=== PATIENT | male | born 1985 | race Caucasian/White ===

== ENCOUNTER 2021-05-06 13:42 | Outpatient (REF) | payer BC, SELFPAY ==
[2021-05-06 13:56] LABS: MANUAL DIFF FLAG NO
[2021-05-06 14:06] LABS: Basophils Absolute Auto 0.1 X10*3/uL (0.0-0.2); Basophils Percent Auto 0.5 % (0-2); Eosinophils Absolute Auto 0.3 X10*3/uL (0.0-0.4); Eosinophils Percent Auto 2.6 % (0-4); Hematocrit 42.5 % (42.0-52.0); Hemoglobin 13.8 g/dl (14.0-18.0); Imm Gran Abs Auto 0.17 X10*3/uL (0.00-0.03); Imm Gran Pct Auto 1.5 % (0.0-0.4); Lymphocytes Absolute Auto 1.3 X10*3/uL (1.2-4.9); Lymphocytes Percent Auto 11.4 % (20-40); Mean Corpuscular HGB Conc 32.5 g/dl (31.0-36.0); Mean Corpuscular Hemoglobin 29.4 pg (27.0-33.0); Mean Corpuscular Volume 90.4 fL (80.0-98.0); Mean Platelet Volume 9.3 fL (9.4-12.4); Monocytes Absolute Auto 0.9 X10*3/uL (0.1-1.2); Monocytes Percent Auto 8.2 % (2-11); Neutrophils Absolute Auto 8.7 x10*3/uL (2.0-8.3); Neutrophils Percent Auto 75.8 % (45-73); Platelet Count 235 X10*3/uL (160-400); Red Cell Distribution Width 14.6 % (11.0-16.0); White Blood Count 11.5 X10*3/uL (4.8-10.8)
[2021-05-06 14:28] LABS: Alanine Aminotransferase 21 U/L (0-40); Albumin Level 4.4 g/dL (3.5-5.0); Alkaline Phosphatase 49 U/L (39-117); Aspartate Amino Transferase 14 U/L (5-37); Bilirubin Direct 0.2 mg/dL (0.0-0.5); Bilirubin Total 0.4 mg/dL (0.0-1.0); C Reactive Protein 0.33 mg/dL (< or = 0.50); Iron 54 mcg/dL (45-160); Percent Iron Saturation 14 % (15-50); Total Iron Binding Capacity 394 mcg/dL (228-428); Total Protein 7.1 g/dL (6.5-8.0); Unsaturated Iron Binding 340 ug/dL
[2021-05-06 14:48] LABS: Ferritin 35 ng/mL (20-250)
[2021-05-06 14:49] LABS: Erythrocyte Sedimentation Rate 2 MM/HR (0-15)
[2021-05-06 15:10] LABS: Folate > 20.0 ng/mL (> or = 4.0); Vitamin B12 429 pg/mL (200-900)
== END 2021-05-06 13:43 | disposition home or self-care (01) ==
LOC: HO.LAB 13:42
PROVIDERS: PCP Physician Assistant Medical; Visit Provider Internal Medicine
DX: K51.30 Ulcerative (chronic) rectosigmoiditis without complications (principal)
CPT/HCPCS: 36415; 80076; 82607; 82728; 82746; 83540; 84443; 85025; 85652; 86140

== ENCOUNTER 2022-08-11 06:34 | Day surgery (SDC) | payer BC, SELFPAY ==
--- NOTE | 2022-08-10 09:16 | HO.ANESPROP2 ---
Documented by User: Yanci Niño NP 08/10/22 09:17 HPI - Anesthesia Eval Consult details Narrative: 37yo M for Colonoscopy [facility] Past Medical History Medical History (Updated 08/10/22 @ 06:56 by Neha Cantu) ADHD Anxiety Iron deficiency anemia Skin rash Ulcerative colitis Ulcerative proctitis Surgical History Surgical History (Updated 08/10/22 @ 06:56 by Neha Cantu) History of colonoscopy No pertinent past surgical history Social History Social History Patient Tobacco Use Status: Never used Tobacco Are you DNR?: No Advance Directives: No Advance Directives Information Provided: Yes Meds Allergies Allergy/AdvReac Type Severity Reaction Status Date / Time No Known Allergies Allergy Verified 08/10/22 06:57 Home Medications Medication Instructions Recorded Confirmed Last Taken Type dexamethasone 10 ml PO Q8H as directed 08/10/22 08/10/22 Unknown History dextroamphetamine-amphetamine ER 1 cap PO DAILY 08/10/22 08/10/22 Unknown History 10 mg 24hr capsule,extend release (Adderall XR) ferrous sulfate PO BID 08/10/22 Unknown History mesalamine 1.2 gram tablet,delayed 4.8 g PO DAILY 08/10/22 08/10/22 Unknown History release mesalamine 4 gram/60 mL enema 1 [facility] BEDTIME 08/10/22 Unknown History multivitamin 1 tab PO DAILY 08/10/22 08/10/22 Unknown History Exam Exam Date and Time: August 10, 2022 0916 Assessment and Plan Assessment Anesthesia Assessment: Chart Reviewed Documented by User: Usama Rodriguez MD 08/11/22 07:47 [facility] Past Medical History Medical History (Updated 08/10/22 @ 06:56 by Neha Cantu) ADHD Anxiety Iron deficiency anemia Skin rash Ulcerative colitis Ulcerative proctitis Family History Family history of problems with anesthesia: No Surgical History Surgical History (Updated 08/10/22 @ 06:56 by Neha Cantu) History of colonoscopy No pertinent past surgical history History of Problems with Anesthesia: No Social History Social History Patient Tobacco Use Status: Never used Tobacco Are you DNR?: No Advance Directives: No Advance Directives Information Provided: Yes Meds Allergies Allergy/AdvReac Type Severity Reaction Status Date / Time No Known Allergies Allergy Verified 08/10/22 06:57 Home Medications Medication Instructions Recorded Confirmed Last Taken Type dexamethasone 10 ml PO Q8H as directed 08/10/22 08/10/22 Unknown History dextroamphetamine-amphetamine ER 1 cap PO DAILY 08/10/22 08/10/22 Unknown History 10 mg 24hr capsule,extend release (Adderall XR) ferrous sulfate PO BID 08/10/22 Unknown History mesalamine 1.2 gram tablet,delayed 4.8 g PO DAILY 08/10/22 08/10/22 Unknown History release mesalamine 4 gram/60 mL enema 1 NH BEDTIME 08/10/22 Unknown History multivitamin 1 tab PO DAILY 08/10/22 08/10/22 Unknown History Exam Airway Mallampati Class: I TM Dist: >3cm Neck ROM: Full Loose/Missing/Broken Teeth: No Heart: ok Lungs: ok Assessment and Plan Assessment Anesthesia Assessment: Anesthesia Plan Discussed Final Anesthetic Review Family History of Problems with Anesthesia: No History of Problems with Anesthesia: No NPO: Yes ASA Class: II Final Preanesthetic Review: No Changes in Pt Med Stat, Meds/Allgs Chart Reviewed, Consent Obtained/Reviewed and Anes Risks/Benef Reviewed Patient Risk: Low Procedure Risk: Low Anesthetic Plan Anesthetic Plan: MAC: and Agree w/ Assess. and Plan Disposition: Standard PACU
[2022-08-11 05:54] VITALS: BMI 28.9
[2022-08-11 06:38] VITALS: BP 133/79; PULSE 79; RESP 20; TEMP 36.5; O2SAT 98
[2022-08-11 08:36] VITALS: BP 104/70; PULSE 71; RESP 18; TEMP 36.2; O2SAT 98
--- NOTE | 2022-08-11 08:40 | PM.OP ---
Brief Operative Note Date of Service: 08/11/22 Pre-op diagnosis: Ulcerative colitis, Screening Post-op diagnosis: other (Ulcerative proctitis) Procedure: Colonoscopy to the cecum and TI with biopsies Surgeon: Harpreet Gaviria Anesthesia: MAC Was an Network Program Manager used for this Procedure?: No Estimated blood loss (mL): 2.0 Pathology: other (A. Ascending colon B. Transverse colon C. Descending colon D. Sigmoid colon E. Rectum) Condition: stable Disposition: PACU
[2022-08-11 08:51] VITALS: BP 120/69; PULSE 63; RESP 18; TEMP 36.2; O2SAT 100
--- NOTE | 2022-08-11 09:17 | OP_ITS ---
DATE OF SERVICE: 08/11/2022 SURGEON: Harpreet Gaviria MD INDICATIONS: The patient presents for followup of ulcerative colitis and colorectal cancer screening. Full consent was obtained from him for this, including risks of bleeding and perforation. PREOPERATIVE DIAGNOSIS: POSTOPERATIVE DIAGNOSIS: PROCEDURE PERFORMED: Colonoscopy to the cecum and terminal ileum with multiple biopsies. ESTIMATED BLOOD LOSS: COMPLICATIONS: ANESTHESIA: Monitored anesthesia care. ASSISTANTS: SPECIMENS: PREOPERATIVE DIAGNOSES: Ulcerative colitis and colorectal cancer screening. POSTOPERATIVE DIAGNOSES: Ulcerative colitis and colorectal cancer screening, ulcerative proctitis, small internal hemorrhoids. DESCRIPTION OF PROCEDURE: The patient was placed in the left lateral decubitus position. The digital rectal exam revealed no abnormalities. There was no perianal disease. The Olympus video pediatric colonoscope was entered into the rectum and advanced easily to the cecum. Once in the cecum I did identify normal-appearing cecal pouch with appendiceal orifice and a normal-appearing ileocecal valve. The terminal ileum was cannulated and appeared normal. The scope was withdrawn back in the colon. The entire cecum and ileocecal valve appeared normal. The scope was slowly withdrawn assessing all mucosal surfaces carefully. For the most part preparation was excellent, although there was some small areas of liquid stool that had to be irrigated and suctioned away. The only mucosal abnormality was in the distal rectum consistent with an ulcerative proctitis. The majority of the rectum and the remainder of the colon appeared normal. I did obtain random biopsies in the ascending colon, transverse colon, descending colon, sigmoid colon and rectum. I did not visualize any sign of polyps nor angiodysplasia. In the rectum, scope was retroflexed visualizing the distal ulcerative proctitis as well as small internal hemorrhoids. The scope was withdrawn from the patient. He tolerated the procedure well and was returned to the recovery area in stable condition. IMPRESSION: 1. Distal ulcerative proctitis. 2. Rule out dysplasia. 3. Small internal hemorrhoids. PLAN: The results of biopsy will be checked. Assuming there is no dysplasia, I would recommend a repeat colonoscopy in 5 years. He was advised to continue his 4.8 g of mesalamine each morning and the mesalamine suppository at bedtime if needed. If things are stable, I will see him in 1 year for a followup visit. He was instructed to not use any aspirin or NSAIDs for 1 week, but to try to avoid them long-term in general due to the underlying inflammatory bowel disease. Harpreet Gaviria MD [facility]/KAYLEE / [id number]
== END 2022-08-11 09:10 | disposition home or self-care (01) ==
PROVIDERS: Visit Provider Internal Medicine
PROC: 0DJD8ZZ Inspection of Lower Intestinal Tract, Via Natural or Artificial Opening Endoscopic (ICD-10-PCS; CPT 45378; principal; 2022-08-11 07:30)
DX: K51.20 Ulcerative (chronic) proctitis without complications (principal); K64.8 Other hemorrhoids; D50.9 Iron deficiency anemia, unspecified; F12.90 Cannabis use, unspecified, uncomplicated; Z79.899 Other long term (current) drug therapy
CPT/HCPCS: 45380; 88305; J3010

== ENCOUNTER 2023-05-16 16:11 | Outpatient (REF) | payer BC, SELFPAY ==
[2023-05-17 05:19] LABS: HBS Num1 > 1000.00 mIU/mL (0-7.99); HBc Num1 0.09 S/CO (0.00-0.79); Hepatitis B Core Antibody Nonreactive (Nonreactive); Hepatitis B Surface Antigen Negative (Negative); ~Hepatitis B Surface Antibody REACTIVE (Nonreactive)
[2023-05-18 22:28] LABS: TS Negative Control Passed; TS Panel A 0; TS Panel B 0; TS Positive Control Passed; TSpotTB Negative (Negative)
== END 2023-05-16 16:12 | disposition home or self-care (01) ==
LOC: HO.LAB 16:11
PROVIDERS: PCP Internal Medicine; Visit Provider Internal Medicine
DX: Z11.1 Encounter for screening for respiratory tuberculosis (principal); K51.20 Ulcerative (chronic) proctitis without complications; K51.30 Ulcerative (chronic) rectosigmoiditis without complications
CPT/HCPCS: 36415; 86481; 86704; 86706; 87340

== ENCOUNTER 2023-07-20 16:17 | Outpatient (REF) | payer BC, SELFPAY | END 2023-07-20 16:18 | disposition home or self-care (01) | LOC: HO.LAB 16:17 | PROVIDERS: Visit Provider Internal Medicine | DX: Z13.89 Encounter for screening for other disorder (principal) ==